=== PATIENT | female | born 1985 | race Caucasian/White ===

== ENCOUNTER 2020-03-22 04:52 | Inpatient (IN) ==
[2020-03-20 15:22] LABS: Hematocrit 34 % (35-47); Hemoglobin 11.5 g/dL (12.0-16.0); Mean Corpuscular HGB Conc 34 g/dL (31-36); Mean Corpuscular Hemoglobin 29 pg (27-31); Mean Corpuscular Volume 85 fL (80-97); Mean Platelet Volume 11.6 fL (7.4-10.4); Platelet Count 144 10^3/uL (150-450); Red Blood Count 3.94 10^6 /uL (3.70-4.87); Red Cell Distribution Width 14 % (10-15); White Blood Count 6.7 10^3/uL (3.5-10.8)
[2020-03-20 16:31] LABS: ABS Eosinophils 0.1 10^3/ul (0-0.6); ABS Lymphocytes 1.6 10^3/ul (1.0-4.8); ABS Monocytes 0.5 10^3/ul (0-0.8); Eosinophil % 0.8 %; Lymphocyte % 24.5 %; Nucleated Red Blood Cells % 0.1
[2020-03-22] MEDS ORDERED: Lactated Ringers 1000 ml BAG 1,000 ML IV SCH ×2 (06:00→10:00)
[2020-03-22] MEDS ORDERED: Sodium Citrate/Citric Acid LIQ 15 ML UDC PO ONE (06:00)
[2020-03-22] MEDS ORDERED: ceFOXitin 2 GM IVPREMIX 2 GM/50 ML BAG IVPB ONE (06:00)
[2020-03-22] MEDS ORDERED: Oxytocin 10 UNITS/ML 1 ML VIAL ONE (07:21)
[2020-03-22] MEDS ORDERED: Phenylephrine 40 mcg/mL 10mL (400mcg) SYRINGE ONE (07:21)
[2020-03-22] MEDS ORDERED: Morphine PF AMP (0.5MG/ML) 5 MG/10 ML AMP ONE (07:22)
[2020-03-22 07:35] LABS: Urine Benzodiazepine Screen None Detected (None Detect); Urine Opiates Screen None Detected (None Detect)
[2020-03-22] MEDS ORDERED: Naloxone 0.4 mg VIAL 0.4 mg/ml 1 ml VIAL IV PRN ×2 (07:40→07:42)
[2020-03-22] MEDS ORDERED: Ondansetron 4 mg VIAL 2 MG/ML 2 ml VIAL IV PRN ×2 (07:40→07:47)
[2020-03-22] MEDS ORDERED: fentaNYL 100 mcg/2 ml 50 MCG/ML VIAL IV PRN (07:40)
[2020-03-22] MEDS ORDERED: Scopolamine PATCH Remove NOTE PATCH OFF PRN (07:47)
[2020-03-22] MEDS ORDERED: diPHENhydraMINE IV 50 MG/ML 1 ml VIAL (BENADRYL) IV PRN (07:47)
[2020-03-22] MEDS ORDERED: oxyCODONE/Acetamin 5/325 mg TAB PO PRN ×2 (07:47)
[2020-03-22] MEDS ORDERED: Glycerin ADULT 2.4 gm SUPP PR PRN (09:24)
[2020-03-22] MEDS ORDERED: Witch Hazel PAD JAR TOPICAL PRN (09:24)
[2020-03-22] MEDS ORDERED: Dibucaine 1% OINT 28.35 GM TUBE PR PRN (09:24)
[2020-03-23 06:50] LABS: ABS Basophils 0.1 10^3/ul (0-0.2); ABS Lymphocytes 1.4 10^3/ul (1.0-4.8); ABS Monocytes 0.8 10^3/ul (0-0.8); Eosinophil % 0.1 %; Hematocrit 30 % (35-47); Hemoglobin 10.3 g/dL (12.0-16.0); Lymphocyte % 13.7 %; Mean Corpuscular HGB Conc 35 g/dL (31-36); Mean Corpuscular Hemoglobin 30 pg (27-31); Mean Corpuscular Volume 86 fL (80-97); Mean Platelet Volume 11.5 fL (7.4-10.4); Platelet Count 125 10^3/uL (150-450); Red Blood Count 3.46 10^6 /uL (3.70-4.87); Red Cell Distribution Width 14 % (10-15)
[2020-03-25 08:19] VITALS: BP 132/70
== END 2020-03-25 13:20 | disposition home or self-care (01) | DRG 540 ==
LOC: MCHOB 04:52
PROVIDERS: ADMIT Obstetrics & Gynecology; ATTEND Obstetrics & Gynecology